=== PATIENT | male | born 1995 | race Caucasian/White ===

== ENCOUNTER 2018-08-07 22:27 | Emergency (ER) | payer SELFPAY ==
[~2018-08-07] VITALS: Ht 170.2 cm; Wt 68.0 kg
--- NOTE | 2018-08-07 22:27 | NUR ---
BIBA TO ER BED 1
[2018-08-07 22:30] VITALS: BP 138/107
[2018-08-07] MEDS ORDERED: LORazepam 2 MG/ML VIAL IM ONE ×2 (22:30→22:35)
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
[2018-08-07] MEDS ORDERED: AMMONIA AROMATIC 1 INHL INH ONE (23:15)
[2018-08-08] MEDS ORDERED: NACL 0.9% 1,000 ML IV ONE (00:30)
--- NOTE | 2018-08-08 00:31 | NUR ---
PT LAYING IN BED, [place] [employer] AT BEDSIDE. PT REMAINS AROUSABLE TO PAIN DESPITE AMMONHIA INH. VSS, RR EVEN AND UNLABORED. ER MD AT BEDSIDE. 18G IV STARTED ON LAC, 1L NS BOLUS GIVEN ORDERED AT THIS TIME.
[2018-08-08 01:01] VITALS: BP 125/85
--- NOTE | 2018-08-08 01:01 | NUR ---
Patient discharged with v/s stable. Written and verbal after care instructions given and explained. Ambulatory with assist in custody. All questions addressed prior to discharge. Advised to follow up with PMD. Accompanied by Arnold RASMUSSEN.
== END 2018-08-08 01:01 ==
LOC: MED 22:27
DX: F22 Delusional disorders (principal); F41.9 Anxiety disorder, unspecified; F91.1 Conduct disorder, childhood-onset type
CPT/HCPCS: 81002; 96372; 99284; J2060; J7030